=== PATIENT | female | born 1980 ===

== ENCOUNTER 2019-08-08 22:31 | Emergency (ER) | payer SELFPAY ==
[~2019-08-08] VITALS: Ht 160 cm; Wt 57.0 kg
[2019-08-08 23:06] VITALS: BP 124/85
== END 2019-08-08 23:40 | disposition left against medical advice (07) ==
LOC: EMS 22:32
DX: R10.13 Epigastric pain (principal); Z53.21 Procedure and treatment not carried out due to patient leaving prior to being seen by health care provider